=== PATIENT | male | born 1960 | race Caucasian/White ===

== ENCOUNTER → 2021-04-15 | Outpatient (CLI) | payer OTHER ==
[~2021-04-15] MED LIST: ELIQUIS5 M1 PO; K-DUR TAB 20 M20 MEQ PO; LOPRESSOR 25 MG25 MG PO
== END ==
LOC: CT 09:00
DX: R10.32 Left lower quadrant pain (principal); J90 Pleural effusion, not elsewhere classified; K59.00 Constipation, unspecified; J92.9 Pleural plaque without asbestos; N32.89 Other specified disorders of bladder
CPT/HCPCS: 36415; 82565; Q9967